=== PATIENT | female | born 1990 | race Caucasian/White ===

== ENCOUNTER 2016-02-21 05:19 | Emergency (ER) | payer OTHER ==
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
--- NOTE | 2016-02-24 10:27 | ED MED RECONCILIATION SUMMARY ---
Patient: STALIN BONILLA Medication Reconciliation Report Located Within [facility] VisitID: [id number] [address] [place] [address] 25y, F Registration Date/Time: 02/21/2016 Weight: 70.3 kg Height/Length: 63 in. BMI: 27.5 ALLERGIES: No Known Drug Allergy The patient's Home Medications are listed below: NONE. The source(s) of the original Home Medication information: patient The following Medications were given to the patient in the Emergency Department: IV NS IV Fluids bolus 0, then 500 mL/hr, administered: 02/21/2016 8:20:00 AM The following Medications were prescribed to the patient: Acetaminophen (available over the counter): take according to label instructions. -- Eulalio Mixon Dr. Motrin (available over the counter): take according to label instructions. -- Eulalio Mixon Dr.
--- NOTE | 2016-02-24 10:27 | ED MED RECONCILIATION SUMMARY ---
Patient: STALIN BONILLA Medication Reconciliation Report [facility] VisitID: [id number] [address] [place] [address] 25y, F Registration Date/Time: 02/21/2016 Weight: 70.3 kg Height/Length: 63 in. BMI: 27.5 ALLERGIES: No Known Drug Allergy The patient's Home Medications are listed below: NONE. The source(s) of the original Home Medication information: patient The following Medications were given to the patient in the Emergency Department: IV NS IV Fluids bolus 0, then 500 mL/hr, administered: 02/21/2016 8:20:00 AM The following Medications were prescribed to the patient: Acetaminophen (available over the counter): take according to label instructions. -- Eulalio Mixon Dr. Motrin (available over the counter): take according to label instructions. -- Eulalio Mixon Dr.
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
--- NOTE | 2016-02-24 10:27 | ED MAR SUMMARY ---
..... Medication Administration Record [facility] [address] [place] [address] Patient: STALIN BONILLA Visit ID: [id number] 25y, F Weight: 70.3 kg Height/Length: 63 in BMI: 27.5 ALLERGIES: No Known Drug Allergy Start 08:20 02/21/2016 Laura Goncalves RDianNDian Medication Administered: IV NS (SALINE), Dose: IV Fluids over 1 hour(s), Rate: 500 mL/hr, Dispensed: 1000 mL bag, Site: #1. Medication Ordered: IV NS : initial bolus 1000 mL (1000 mL/hr), then none - for X1 (NOW).
--- NOTE | 2016-02-24 10:27 | ED MAR SUMMARY ---
..... Medication Administration Record [facility] [address] [place] [address] Patient: STALIN BONILLA Visit ID: [id number] 25y, F Weight: 70.3 kg Height/Length: 63 in BMI: 27.5 ALLERGIES: No Known Drug Allergy Start 08:20 02/21/2016 Larua Goncalves RDianNDian Medication Administered: IV NS (SALINE), Dose: IV Fluids over 1 hour(s), Rate: 500 mL/hr, Dispensed: 1000 mL bag, Site: #1. Medication Ordered: IV NS : initial bolus 1000 mL (1000 mL/hr), then none - for X1 (NOW).
== END 2016-02-21 08:20 | disposition home or self-care (01) ==
LOC: ED SRH 05:19
DX: S00.83XA Contusion of other part of head, initial encounter (principal); S29.8XXA Other specified injuries of thorax, initial encounter; S09.90XA Unspecified injury of head, initial encounter; R41.3 Other amnesia; V49.3XXA Car occupant (driver) (passenger) injured in unspecified nontraffic accident, initial encounter; Y93.89 Activity, other specified; Y92.9 Unspecified place or not applicable; Y99.9 Unspecified external cause status; R91.1 Solitary pulmonary nodule
CPT/HCPCS: 90001; 90004; 90100; 90155; 91004; 92235; 93070; 95059